=== PATIENT | male | born 1995 | race Caucasian/White ===

== ENCOUNTER 2017-05-08 21:15 | Emergency (ER) | payer MEDICAID ==
[~2017-05-08] VITALS: Ht 172.7 cm; Wt 85.4 kg
[2017-05-08 21:17] VITALS: BP 115/66
[2017-05-08] MEDS ORDERED: DIPH,PERTUSS(ACELL),TET VAC/PF 0.5 ML IM-VACC ONE ×2 (21:53→22:00)
== END 2017-05-08 22:16 | disposition home or self-care (01) ==
LOC: ED 22:10
DX: S01.01XA Laceration without foreign body of scalp, initial encounter (principal); W19.XXXA Unspecified fall, initial encounter; Y93.89 Activity, other specified; Y99.8 Other external cause status; Y92.099 Unspecified place in other non-institutional residence as the place of occurrence of the external cause
CPT/HCPCS: 12002; 90471; 90715

== ENCOUNTER 2017-05-18 19:29 | Emergency (ER) | payer MEDICAID ==
[~2017-05-18] VITALS: Ht 172.7 cm; Wt 83.7 kg
[2017-05-18 19:31] VITALS: BP 139/84
== END 2017-05-18 20:48 ==
LOC: ED 20:30
DX: S01.01XD Laceration without foreign body of scalp, subsequent encounter (principal); X58.XXXD Exposure to other specified factors, subsequent encounter
CPT/HCPCS: 99281

== ENCOUNTER 2017-12-04 09:45 | Emergency (ER) | payer MEDICAID, OTHER ==
[~2017-12-04] VITALS: Ht 172.7 cm; Wt 86.0 kg
[2017-12-04 09:54] VITALS: BP 123/75
== END 2017-12-04 14:31 | disposition home or self-care (01) ==
LOC: ED 14:10
DX: S16.1XXA Strain of muscle, fascia and tendon at neck level, initial encounter (principal); S40.022A Contusion of left upper arm, initial encounter; M54.5 Low back pain; M54.6 Pain in thoracic spine; V43.52XA Car driver injured in collision with other type car in traffic accident, initial encounter; Y93.89 Activity, other specified; Y92.410 Unspecified street and highway as the place of occurrence of the external cause; Y99.8 Other external cause status
CPT/HCPCS: 72072; 72110; 72125; 99284

== ENCOUNTER 2018-11-01 11:40 | Emergency (ER) | payer SELFPAY ==
[~2018-11-01] VITALS: Ht 172.7 cm; Wt 87.0 kg
[2018-11-01 11:51] VITALS: BP 175/92
--- NOTE | 2018-11-01 12:25 | NUR ---
Patient/Caregiver given discharge instructions and they have confirmed that they understand the instructions. Patient ambulatory with steady gait.
== END 2018-11-01 12:26 | disposition home or self-care (01) ==
LOC: ED 12:20
DX: K04.6 Periapical abscess with sinus (principal)
CPT/HCPCS: 41800; 99283

== ENCOUNTER 2021-01-19 13:57 | Emergency (ER) | payer SELFPAY ==
[~2021-01-19] VITALS: Ht 172.7 cm; Wt 85.9 kg
[2021-01-19 14:14] VITALS: BP 124/86
== END 2021-01-19 15:07 | disposition home or self-care (01) ==
LOC: ED 15:01
DX: S00.212A Abrasion of left eyelid and periocular area, initial encounter (principal); X58.XXXA Exposure to other specified factors, initial encounter; Y93.89 Activity, other specified; Y92.89 Other specified places as the place of occurrence of the external cause; Y99.8 Other external cause status
CPT/HCPCS: 99283